=== PATIENT | female | born 1970 | race Caucasian/White ===

== ENCOUNTER 2024-07-06 11:50 | Emergency (ER) | payer OTHER ==
[2024-07-06 12:54] LABS: Absolute Eosinophils 0.4 K/uL (0-0.5); Absolute Lymphocytes (CBC) 1.8 K/uL (0.7-4.9); Absolute Monocytes 0.5 K/uL (0.1-1.3); Absolute Neutrophil 6.7 K/uL (1.8-8.0); Basophils % 0.5 % (0-1.3); Eosinophils % 3.9 % (0-4.4); Hematocrit 35.9 % (36.0-45.0); Hemoglobin 11.2 g/dL (12.0-15.0); Lymphocytes % 18.8 % (15.3-44.8); MCH 23.9 pg (27.0-35.0); MCHC 31.2 g/dL (32.0-36.0); MCV 76.6 fL (80-100); MPV 7.9 fL (7.6-11.3); Monocytes % 5.3 % (3.3-12.3); Neutrophils % 71.5 % (41.7-73.7); Platelets 430 thou/uL (152-406); RBC Red Blood Cell Count 4.69 M/uL (3.86-4.86)
[2024-07-06 12:56] LABS: Specific Gravity 1.022 (1.005-1.030); Sqamous Epithelial <5 /HPF (None Seen); Urine Bacteria None Seen /HPF (<20); Urine Bilirubin NEGATIVE (Negative); Urine Blood Negative (Negative); Urine Clarity Turbid (Clear); Urine Color Yellow (Yellow); Urine Culture Reflex Order NOT NEEDED; Urine Glucose NEGATIVE (Negative); Urine Ketones NEGATIVE (Negative); Urine Microscopic Reflex YN ORDER UMIC; Urine Mucus Slight /HPF (None Seen); Urine Nitrite NEGATIVE (Negative); Urine Protein NEGATIVE (Negative); Urine RBC <5 /HPF (None Seen); Urine Urobilinogen Normal (Normal); Urine WBC <5 /HPF (<5)
[2024-07-06 13:04] LABS: Albumin 3.8 g/dL (3.4-5.0); Albumin/Globulin Ratio 0.8 (1.1-1.8); Anion Gap 10.6 mEq/L (5.0-15.0); Bilirubin Total 0.4 mg/dL (0.2-1.0); Globulin 4.5 g/dL (2.3-3.5); Potassium 3.6 mEq/L (3.5-5.1); Protein, Total 8.3 g/dL (6.4-8.2)
--- NOTE | 2024-07-06 13:31 | RAD REPORT ---
EXAM DESCRIPTION: CT - Abdomen Pelvis W Contrast - 07/06/2024 12:43 pm CLINICAL HISTORY: ABD PAIN COMPARISON: No comparisons TECHNIQUE: Thin cut axial CT imaging of the abdomen and pelvis was performed following intravenous a dministration of 100 mL Isovue 300. Multiplanar reformats were generated and reviewed. All CT scans are performed using dose optimization technique as appropriate and may include automated exposure control or mA/KV adjustment according to patient size. FINDINGS: No suspicious findings in the lung bases. The liver, spleen, adrenal glands, and pancreas show no suspicious findings. Gallbladder was surgical ly removed. Symmetric renal function is seen with no hydronephrosis or suspicious renal mass. Numerous left parap elvic cysts. No dilated bowel loops or bowel wall thickening. No free air, free fluid or inflammatory stranding. M idline ventral supraumbilical hernia, with hernia sac measuring 5.9 cm in greatest transverse diamete r. No suspicious mass or bulky lymphadenopathy. Uterus is somewhat retroflexed. The urinary bladder i s without significant finding. Sclerotic left iliac bone 2.1 cm ovoid lesion, may represent a bone island. No other suspicious bony findings. IMPRESSION: No acute intra-abdominal process. Incidental findings as above.
--- NOTE | 2024-07-06 14:34 | EDPHYS ---
Physician Documentation [facility] Name: Blanca Emerson Age: 54 yrs Sex: Female : 1970 Arrival Date: 07/06/2024 Time: 11:50 Bed 7 Private MD: ED Physician Alberto Tan HPI: 07/06 12:48 This 54 yrs old Female presents to ER via EMS with complaints of Abdominal Pain. sp3 12:48 54-year-old female with a history of GERD, umbilical hernia, endometriosis, status post sp3 cholecystectomy presents with epigastric pain that started while she was at work suddenly and is now mostly resolved however still present. She denies any other symptoms including headache, fever, URI symptoms, cough, vomiting, back pain, lower abdominal pain, syncope, near syncope, travel history, diarrhea,, or any other concerning signs or symptoms on ROS at this time.. Historical: - Allergies: 11:52 Ciprofloxacin; mb9 11:52 Avelox; mb9 - Home Meds: 11:52 Hydrochlorothiazide Oral [Active]; mb9 - PMHx: 11:52 GERD; hernia; Endometriosis of vagina; mb9 - PSHx: 11:52 Cholecystectomy; mb9 - Immunization history:: Adult Immunizations up to date. - Infectious Disease History:: Denies. - Social history:: Smoking status: Patient denies any tobacco usage or history of. ROS: 12:48 Constitutional: Negative for fever, chills, and weight loss, Eyes: Negative for injury, sp3 pain, redness, and discharge, ENT: Negative for injury, pain, and discharge, Neck: Negative for injury, pain, and swelling, Cardiovascular: Negative for chest pain, palpitations, and edema, Respiratory: Negative for shortness of breath, cough, wheezing, and pleuritic chest pain, Back: Negative for injury and pain, MS/Extremity: Negative for injury and deformity, Skin: Negative for injury, rash, and discoloration, Neuro: Negative for headache, weakness, numbness, tingling, and seizure, Psych: Negative for depression, anxiety, suicide ideation, homicidal ideation, and hallucinations, Allergy/Immunology: Negative for hives, rash, and allergies, Endocrine: Negative for neck swelling, polydipsia, polyuria, polyphagia, and marked weight changes, 12:48 All other systems are negative, Exam: 12:49 Constitutional: This is a well developed, well nourished patient who is awake, alert, sp3 and in no acute distress. Head/Face: Normocephalic, atraumatic. Eyes: Pupils equal round and reactive to light, extra-ocular motions intact. Lids and lashes normal. Conjunctiva and sclera are non-icteric and not injected. Cornea within normal limits. Periorbital areas with no swelling, redness, or edema. ENT: Nares patent. No nasal discharge, no septal abnormalities noted. External auditory canals are clear. Oropharynx with no redness, swelling, or masses, exudates, or evidence of obstruction, uvula midline. Mucous membranes moist. Neck: Trachea midline, no thyromegaly or masses palpated, and no cervical lymphadenopathy. Supple, full range of motion without nuchal rigidity, or vertebral point tenderness. No Meningismus. Chest/axilla: Normal chest wall appearance and motion. Nontender with no deformity. No lesions are appreciated. Cardiovascular: Regular rate and rhythm with a normal S1 and S2. No gallops, murmurs, or rubs. Normal PMI, no JVD. No pulse deficits. Respiratory: Lungs have equal breath sounds bilaterally, clear to auscultation and percussion. No rales, rhonchi or wheezes noted. No increased work of breathing, no retractions or nasal flaring. Back: No spinal tenderness. No costovertebral tenderness. Full range of motion. Skin: Warm, dry with normal turgor. Normal color with no rashes, no lesions, and no evidence of cellulitis. MS/ Extremity: Pulses equal, no cyanosis. Neurovascular intact. Full, normal range of motion. Neuro: Awake and alert, GCS 15, oriented to person, place, time, and situation. Cranial nerves II-XII grossly intact. Motor strength 5/5 in all extremities. Sensory grossly intact. Cerebellar exam normal. Normal gait. Psych: Awake, alert, with orientation to person, place and time. Behavior, mood, and affect are within normal limits. 12:49 Abdomen/GI: Abdomen epigastrically tender to palpation without peritoneal signs, significant pain, rebound or guarding., Vital Signs: 11:50 BP 147 / 88; Pulse 89; Resp 18; Temp 98.4; Pulse Ox 100% on R/A; Weight 155.58 kg; mb9 Height 5 ft. 9 in. ; Pain 8/10; 14:24 BP 122 / 73; Pulse 74; Resp 18; Pulse Ox 100% on R/A; mb9 11:50 Body Mass Index 50.65 (155.58 kg, 175.26 cm) mb9 11:50 Pain Scale: Adult mb9 MDM: 11:54 Patient medically screened. sp3 12:50 Data reviewed: vital signs, nurses notes, lab test result(s), radiologic studies. ED sp3 course: 54-year-old female with PMH above including umbilical hernia now with epigastric pain. Differential diagnosis includes gastritis, gastric reflux, hiatal hernia, pancreatitis, other biliary pathology, colitis, among others. I am not highly suspicious for UA/pyelonephritis Bactrim, vascular pathology or any other critical illness including sepsis and shock. Workup will include laboratory values, CT scan of the abdomen pelvis with IV contrast and general supportive care. Disposition pending workup and patient course.. 07/06 12:24 Order name: CBC with Diff; Complete Time: 13:28 sp3 07/06 12:24 Order name: CMP; Complete Time: 13:28 sp3 07/06 12:24 Order name: Lipase; Complete Time: 13:28 sp3 07/06 12:24 Order name: Urinalysis w/ reflexes; Complete Time: 13:28 sp3 07/06 12:24 Order name: CT Abd/Pelvis - IV Contrast Only; Complete Time: 14:22 sp3 07/06 12:24 Order name: IV Saline Lock; Complete Time: 12:27 sp3 07/06 12:24 Order name: Labs collected and sent; Complete Time: 12:27 sp3 Administered Medications: No medications were administered Disposition Summary: 07/06/24 14:34 Discharge Ordered Notes: Location: Home sp3 Condition: Stable sp3 Diagnosis - Abdominal pain, Generalized sp3 Followup: sp3 - With: Private Physician - When: Upon discharge from the Emergency Department - Reason: Continuance of care Discharge Instructions: - Discharge Summary Sheet sp3 - Abdominal Pain, Adult sp3 Forms: - Work release form ap3 - Medication Reconciliation Form sp3 - Antibiotic Education sp3 - Prescription Opioid Use sp3 - Patient Portal Instructions sp3 - Leadership Thank You Letter sp3 Signatures: Dispatcher [employer] EDMS Alberto Tan MD MD sp3 Rachel Ott RN RN mb9 Corrections: (The following items were deleted from the chart) 12:24 12:24 CBC+H.LAB.BRZ ordered. EDMS EDMS 12:24 12:24 COMPREHENSIVE METABOLIC PANEL+C.LAB.BRZ ordered. EDMS EDMS 12:24 12:24 LIPASE+C.LAB.BRZ ordered. EDMS EDMS 12:24 12:24 Urinalysis+U.LAB.BRZ ordered. EDMS EDMS 12:24 12:24 Abdomen Pelvis W Con+CT.RAD.BRZ ordered. EDMS EDMS
--- NOTE | 2024-07-06 14:34 | ER ---
Nurse's Notes [facility] Name: Blanca Emerson Age: 54 yrs Sex: Female : 1970 Arrival Date: 07/06/2024 Time: 11:50 Bed 7 Private MD: Diagnosis: Abdominal pain, Generalized Presentation: 07/06 11:50 Chief complaint: EMS states: "toned out for upper abdominal pain that started while mb9 sitting at work. Pt states it feels like a constant burning.". Coronavirus screen: Vaccine status: Patient reports receiving the 2nd dose of the covid vaccine. Ebola Screen: No symptoms or risks identified at this time. Initial Sepsis Screen: Does the patient meet any 2 criteria? No. Patient's initial sepsis screen is negative. Does the patient have a suspected source of infection? No. Patient's initial sepsis screen is negative. Risk Assessment: Do you want to hurt yourself or someone else? Patient reports no desire to harm self or others. Onset of symptoms was July 06, 2024. 11:50 Acuity: DICK 3 mb9 11:50 Method Of Arrival: EMS: [facility] mb9 Triage Assessment: 11:54 General: Appears uncomfortable, Behavior is anxious. Pain: Complains of pain in abdomen mb9 Pain does not radiate. Pain currently is 8 out of 10 on a pain scale. Quality of pain is described as burning, Pain began suddenly, Is intermittent. EENT: No signs and/or symptoms were reported regarding the EENT system. Neuro: Hernandez Agitation-Sedation Scale (RASS): 0 - Alert and Calm Level of Consciousness is awake, alert, obeys commands, Oriented to person, place, time, situation, Appropriate for age. Cardiovascular: Patient's skin is warm and dry. Respiratory: Airway is patent Respiratory effort is even, unlabored, Respiratory pattern is regular, symmetrical, Breath sounds are clear bilaterally. Respiratory:. GI: Abdomen is round non-distended, Bowel sounds present X 4 quads. Abd is soft and non tender X 4 quads. GI: Reports upper abdominal pain. : No signs and/or symptoms were reported regarding the genitourinary system. Derm: Skin is pink, warm \\T\\ dry. Musculoskeletal: Range of motion: intact in all extremities. Historical: - Allergies: 11:52 Ciprofloxacin; mb9 11:52 Avelox; mb9 - Home Meds: 11:52 Hydrochlorothiazide Oral [Active]; mb9 - PMHx: 11:52 GERD; hernia; Endometriosis of vagina; mb9 - PSHx: 11:52 Cholecystectomy; mb9 - Immunization history:: Adult Immunizations up to date. - Infectious Disease History:: Denies. - Social history:: Smoking status: Patient denies any tobacco usage or history of. Screenin:55 [facility] ED Fall Risk Assessment (Adult) History of falling in the last 3 months, mb9 including since admission No falls in past 3 months (0 pts) Confusion or Disorientation No (0 pts) Intoxicated or Sedated No (0 pts) Impaired Gait Yes (1 pt) Mobility Assist Device Used Yes (1 pt) Altered Elimination Yes (1 pt) Score/Fall Risk Level 3 or more points = High Risk Oriented to surroundings, Maintained a safe environment, Educated pt \\T\\ family on fall prevention, incl call for assistance when getting out of bed. Abuse screen: Denies threats or abuse. Nutritional screening: No deficits noted. Tuberculosis screening: No symptoms or risk factors identified. Assessment: 11:55 Reassessment: see triage assessment. mb9 12:45 Reassessment: No changes from previously documented assessment. Patient and/or family mb9 updated on plan of care and expected duration. Pain level reassessed. Patient is alert, oriented x 3, equal unlabored respirations, skin warm/dry/pink. 14:24 Reassessment: No changes from previously documented assessment. Patient and/or family mb9 updated on plan of care and expected duration. Pain level reassessed. Patient is alert, oriented x 3, equal unlabored respirations, skin warm/dry/pink. Vital Signs: 11:50 BP 147 / 88; Pulse 89; Resp 18; Temp 98.4; Pulse Ox 100% on R/A; Weight 155.58 kg; mb9 Height 5 ft. 9 in. ; Pain 8/10; 14:24 BP 122 / 73; Pulse 74; Resp 18; Pulse Ox 100% on R/A; mb9 11:50 Body Mass Index 50.65 (155.58 kg, 175.26 cm) mb9 11:50 Pain Scale: Adult mb9 ED Course: 11:50 Patient arrived in ED. mb9 11:50 Arm band placed on. mb9 11:51 Alberto Tan MD is Attending Physician. sp3 11:52 Triage completed. mb9 11:55 Placed in gown. Bed in low position. Call light in reach. Side rails up X 1. Provided mb9 Education on: press call light if needing anything. Client placed on continuous cardiac and pulse oximetry monitoring. NIBP monitoring applied. Door closed. Noise minimized. Warm blanket given. Pillow given. 11:55 No provider procedures requiring assistance completed. mb9 12:02 Rachel Ott, RN is Primary Nurse. mb9 12:30 Initial lab(s) drawn, by az, sent to lab. Inserted saline lock: 22 gauge in right mb9 antecubital area, using aseptic technique. Blood collected. Flushed with 10 mL NS. 12:45 CT Abd/Pelvis - IV Contrast Only In Process Unspecified. EDMS 12:49 Inserted saline lock: 22 gauge in left antecubital area, using aseptic technique. Blood mb9 collected. Flushed with 10 mL NS. 12:49 IV discontinued, intact, bleeding controlled, No redness/swelling at site. Pressure mb9 dressing applied, right AC. 14:36 IV discontinued, intact, bleeding controlled, No redness/swelling at site. Pressure mb9 dressing applied. Administered Medications: No medications were administered Medication: 11:56 VIS not applicable for this client. mb9 Outcome: 14:34 Discharge ordered by . sp3 14:57 Discharged to home ambulatory, with friend, ap3 14:57 Condition: good 14:57 Discharge instructions given to patient, Instructed on discharge instructions, follow up and referral plans. Demonstrated understanding of instructions, follow-up care, 14:57 Patient left the ED. ap3 Signatures: Dispatcher [employer] EDMS Dina Clark RN RN ap3 Alberto Tan MD MD sp3 Rachel Ott, ADRYAN RN mb9 Corrections: (The following items were deleted from the chart) 12:03 11:50 Resp 18bpm; Pulse Ox 100%; Temp 98.4F; 155.58 kg; Height 5 ft. 9 in.; BMI: 50.6; mb9 Pain 8/10, Adult; mb9
[2024-07-06 15:38] VITALS: TEMP 98.4; O2SAT 100
[2024-07-06 15:39] VITALS: BP 122/73
== END 2024-07-06 14:57 | disposition home or self-care (01) ==
LOC: ER 11:50
DX: R10.84 Generalized abdominal pain (principal); Z90.49 Acquired absence of other specified parts of digestive tract; K21.9 Gastro-esophageal reflux disease without esophagitis
CPT/HCPCS: 85025; 81001; 36415; 83690; 80053; 74177; Q9967